=== PATIENT | female | born 1950 | race Caucasian/White ===

== ENCOUNTER 2016-09-30 02:23 | Emergency (ER) | payer MEDICARE, OTHER ==
[~2016-09-30] VITALS: Ht 157.5 cm; Wt 83.0 kg
[~2016-09-30 02:23] MED LIST: CARV3.125 PO; DARV PO; LORC10TA PO; PACE200T4 PO; PROT40TA PO; RALO1TAB13 PO; SIMV5TAB32 PO; STOO100C PO
[2016-09-30 02:29] VITALS: BP 151/93; PULSE 60; RESP 14; TEMP 98.3; O2SAT 98
[2016-09-30 02:32] VITALS: BP 151/93; PULSE 60; RESP 14; O2SAT 98
--- NOTE | 2016-09-30 02:34 | PD ---
HPI Chief Complaint: RIGHT SHOULDER PAIN Time Seen by Provider: 02:29 Travel History International Travel<30 days: No Contact w/Intl Traveler<30days: No Traveled to known affect area: No History of Present Illness HPI WHILE GOING TO BATHROOM AND [place] RO[place] APPARENTLY PATIENT LOST CONTROL ([facility]ALL) , EXTENDED HER RIGHT UE IN FOOSH MECHANISM, AND SINCE THEN RT SHOULDER PAIN, EMS PLACED IN SLING AND BROUGHT TO ED....PT DENIES LOC, OR ANY OTHER AREA OF PAIN PFSH Past Medical History Arthritis: Yes Blood Disorders: No Cancer: Yes (RENAL) Cardiovascular Problems: Yes High Cholesterol: Yes Diminished Hearing: No Endocrine: No GERD: Yes Genitourinary: No Immune Disorder: No Musculoskeletal: Yes Neurologic: No Psychiatric: No Reproductive: No Respiratory: No Past Surgical History Genitourinary Surgery: Yes (LEFT NEPHRECTOMY 01/21) Gynecologic Surgery: Yes (HYSTERECTOMY) Hysterectomy: Yes Oral Surgery: Yes (TONSILLECTOMY) Tonsillectomy: Yes Other Surgery: Yes Social History Alcohol Use: No Tobacco Use: No Substance Use: No Allergies-Medications (Allergen,Severity, Reaction): Coded Allergies: citric acid (Unverified Allergy, Intermediate, Hives, 09/30/16) swelling penicillin G (Unverified Allergy, Mild, 09/30/16) Reported Meds & Prescriptions Reported Meds & Active Scripts Active Dulcolax Stool Softener (Docusate Sodium) 100 Mg Cap 100 Mg PO BID Codeine-Acetaminophen 30-300 mg Tab 1 Tab PO Q4H PRN Reported Zocor (Simvastatin) 20 Mg Tab 20 Mg PO DAILY Coreg (Carvedilol) 6.25 Mg Tab 6.25 Mg PO DAILY Synthroid (Levothyroxine Sodium) 25 Mcg Tab 25 Mcg PO DAILY Pantoprazole (Pantoprazole Sodium) 40 Mg Tab 40 Mg PO DAILY Lisinopril 20 Mg Tab 20 Mg PO DAILY Amiodarone (Amiodarone HCl) 200 Mg Tab 200 Mg PO DAILY Review of Systems Except as stated in HPI: all other systems reviewed are Neg Musculoskeletal: Positive: Limited ROM, Pain Physical Exam Narrative GENERAL: SKIN: Warm and dry. HEAD: Atraumatic. Normocephalic. EYES: Pupils equal and round. No scleral icterus. No injection or drainage. ENT: No nasal bleeding or discharge. Mucous membranes pink and moist. NECK: Trachea midline. No JVD. CARDIOVASCULAR: Regular rate and rhythm. RESPIRATORY: No accessory muscle use. Clear to auscultation. Breath sounds equal bilaterally. GASTROINTESTINAL: Abdomen soft, non-tender, nondistended. MUSCULOSKELETAL: Extremities without clubbing, cyanosis, or edema. LIMITED RT SHOULDER ROM, TTP OVER GLENOID REGION AND PROX HUMERUS NEUROLOGICAL: Awake and alert. No obvious cranial nerve deficits. Motor grossly within normal limits. Five out of 5 muscle strength in the arms and legs. Normal speech. PSYCHIATRIC: Appropriate mood and affect; insight and judgment normal. Data Data Last Documented VS Orders Orders Shoulder, Limited(2vws) (09/30/16 ) Ct Brain W/O Iv Contrast(Rout) (09/30/16 02:54) Humerus, One View (09/30/16 ) ^ Sling (09/30/16 03:27) [facility] Medical Decision Making Medical Screen Exam Complete: Yes Emergency Medical Condition: Yes Medical Record Reviewed: Yes Differential Diagnosis FX V DISLOCATION V SUBLUXATION V CLAVICLE/HUMERUS FX Narrative Course xray showed humeral head fx on right, no other complaints at tis point, patient released to son and advised to f/u with orthopedist Diagnosis Primary Impression: Fracture of humeral head, right, closed Referrals: Jean Johnson MD FOR ANY FURTHER RECOMMENDATIONS FOR YOUR SHOULDER FRACTURE Scripts Docusate Sodium (Dulcolax Stool Softener) 100 Mg Cap 100 MG PO BID for Prevent Constipation, #20 CAP 0 Refills Prov: George Zhong MD 09/30/16 Codeine-Acetaminophen (Codeine-Acetaminophen) 30-300 mg Tab 1 TAB PO Q4H Y for PAIN, #20 TAB Prov: George Zhong MD 09/30/16 Disposition: 01 DISCHARGE HOME Condition: Stable George Zhong MD Sep 30, 2016 02:34
[2016-09-30] MEDS ORDERED: AMIO200T PO (02:39)
[2016-09-30] MEDS ORDERED: SYNT25TA PO (02:39)
[2016-09-30] MEDS ORDERED: LISI-515 PO (02:39)
[2016-09-30] MEDS ORDERED: PANT40TA3 PO (02:39)
[2016-09-30] MEDS ORDERED: CARV6.25 PO (02:39)
[2016-09-30] MEDS ORDERED: ZOCO20TA PO (02:39)
--- NOTE | 2016-09-30 03:21 | RADRPT ---
EXAM DATE/TIME: 09/30/2016 02:48 [facility] COMPARISON: No previous studies available for comparison. INDICATIONS : Patient complains of right shoulder pain after falling tonight. MEDICAL HISTORY : None. SURGICAL HISTORY : None. ENCOUNTER: Initial ACUITY: 1 day PAIN SCORE: 9/10 LOCATION: Right Shoulder FINDINGS: Two view examination of the right shoulder demonstrates a complete fracture through the surgical neck with bayonet apposition of the fracture fragments. No associated dislocation. CONCLUSION: Complete fracture of the proximal right humerus as above. Facundo West MD on September 30, 2016 at 3:19 Board Certified Radiologist. This report was verified electronically.
[2016-09-30] MEDS ORDERED: CODE30TA2 PO (03:25)
[2016-09-30] MEDS ORDERED: DULC100C PO (03:25)
--- NOTE | 2016-09-30 03:29 | RADRPT ---
EXAM DATE/TIME: 09/30/2016 02:56 [facility] COMPARISON: No previous studies available for comparison. Previous reports were reviewed. INDICATIONS : Trauma, fall. RADIATION DOSE: 56.35 CTDIvol (mGy) MEDICAL HISTORY : None SURGICAL HISTORY : None. ENCOUNTER: Initial ACUITY: 1 day PAIN SCALE: 4/10 LOCATION: cranial TECHNIQUE: Multiple contiguous axial images were obtained of the head. Using automated exposure control and adj ustment of the mA and/or kV according to patient size, radiation dose was kept as low as reasonably a chievable to obtain optimal diagnostic quality images. DICOM format image data is available electro nically for review and comparison. FINDINGS: CEREBRUM: The ventricles are normal for age. Periventricular areas of diminished attenuation, most prominent a round the posterior horn of the lateral ventricles are characteristic of moderately severe small vess el ischemic demyelination or transependymal flow of CSF. Old lacunar type infarct in the medial aspec t of the left temporal lobe. No evidence of midline shift, mass lesion, hemorrhage or acute infarctio n. No extra-axial fluid collections are seen. POSTERIOR FOSSA: Postsurgical changes within midoccipital craniectomy and postsurgical changes in the region of the ce rebellar vermis cerebellopontine angle is unremarkable. EXTRACRANIAL: The visualized portion of the orbits is intact. SKULL: Old craniectomy defect in the mid occiput CONCLUSION: 1. 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 2. Chronic changes with periventricular areas of diminished attenuation most prominent along the post erior horn of the lateral ventricles suggesting significant small vessel ischemic demyelination or tr ansependymal flow of CSF. 3. Old lacunar-type infarct in the medial aspect of the left temporal lobe Facundo West MD on September 30, 2016 at 3:20 Board Certified Radiologist. This report was verified electronically.
--- NOTE | 2016-09-30 03:29 | RADRPT ---
EXAM DATE/TIME: 09/30/2016 02:56 [facility] COMPARISON: No previous studies available for comparison. INDICATIONS : Patient complains of right shoulder/upper arm pain after falling tonight. MEDICAL HISTORY : None. SURGICAL HISTORY : None. ENCOUNTER: Initial ACUITY: 1 day PAIN SCORE: 9/10 LOCATION: Right Humerus FINDINGS: Single view of the right humerus demonstrates fracture through the proximal humeral metadiaphysis in the region of the surgical neck. CONCLUSION: Proximal right humeral fracture. Facundo West MD on September 30, 2016 at 3:27 Board Certified Radiologist. This report was verified electronically.
== END 2016-09-30 05:21 | disposition home or self-care (01) ==
LOC: NEPE 02:23
DX: S42.294A Other nondisplaced fracture of upper end of right humerus, initial encounter for closed fracture (principal); W01.0XXA Fall on same level from slipping, tripping and stumbling without subsequent striking against object, initial encounter; Y92.009 Unspecified place in unspecified non-institutional (private) residence as the place of occurrence of the external cause; M19.90 Unspecified osteoarthritis, unspecified site; E78.00 Pure hypercholesterolemia, unspecified; K21.9 Gastro-esophageal reflux disease without esophagitis
CPT/HCPCS: 70450; 73030; 99284